=== PATIENT | female | born 1995 | race Caucasian/White ===

== ENCOUNTER 2023-10-21 10:52 | Emergency (ER) | payer MEDICAID ==
[~2023-10-21] VITALS: Ht 172.7 cm; Wt 91.9 kg
[2023-10-21 11:30] VITALS: BP 121/68; PULSE 85; RESP 18; TEMP 97.6; O2SAT 100
[2023-10-21] MEDS ORDERED: SUD30 PO (12:59)
[2023-10-21] MEDS ORDERED: PROM118S5 PO (12:59)
[2023-10-21] MEDS ORDERED: IBUP-2213 PO (12:59)
[2023-10-21 13:09] VITALS: BP 127/67; PULSE 90; RESP 18; TEMP 97.6; O2SAT 100
== END 2023-10-21 13:10 | disposition home or self-care (01) ==
LOC: MED 10:52
DX: J06.9 Acute upper respiratory infection, unspecified (principal); Z79.899 Other long term (current) drug therapy
CPT/HCPCS: 99281

== ENCOUNTER 2024-03-09 12:08 | Emergency (ER) | payer MEDICAID, OTHER ==
[~2024-03-09] VITALS: Ht 167.6 cm; Wt 99.8 kg
[~2024-03-09 12:08] MED LIST: IBUP-2213 PO; PROM118S5 PO; SUD30 PO
[2024-03-09 12:25] VITALS: BP 144/107; PULSE 92; RESP 18; TEMP 99.2; O2SAT 98
[2024-03-09] MEDS: IBUPROFEN 600 MG TAB PO ONE (13:06)
[2024-03-09] MEDS ORDERED: ACET-8203 PO (13:12)
[2024-03-09] MEDS ORDERED: CETI10TA71 PO (13:12)
[2024-03-09] MEDS ORDERED: IBUP-2213 PO (13:12)
[2024-03-09] MEDS ORDERED: NIRM1TAB9 PO (13:26)
== END 2024-03-09 14:06 | disposition home or self-care (01) ==
LOC: MED 12:08
DX: U07.1 COVID-19 (principal); H92.02 Otalgia, left ear; Z79.899 Other long term (current) drug therapy
CPT/HCPCS: 99283